=== PATIENT | male | born 1980 | race African-American/Black ===

== ENCOUNTER 2017-01-31 13:22 | Emergency (ER) | payer MEDICAID ==
[~2017-01-31] VITALS: Ht 175.3 cm; Wt 54.4 kg
[2017-01-31 13:46] VITALS: BP 151/72
--- NOTE | 2017-01-31 14:45 | Emergency Room Report ---
History of Present Illness General Chief Complaint: General Complaint Source: Patient Present Illness HPI 37-year-old male presents to the emergency department complaining of white, a painless white growth on his tongue times several weeks. Patient reports some tenderness he reports he has a history of HIV states he is noncompliant with his antiviral medications. Patient has a followup appointment scheduled with infectious disease in a few weeks he states he cannot be seen sooner. 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 Patient denies fevers, chills, headaches, back pain, rashes. significant increase in fatigue. Patient denies cough. Denies CP, Palpitations , LOC, AMS, dizziness, Changes in Vision, Sensation, paresthesias, or a sudden severe headache. Allergies: Coded Allergies: No Known Allergies (Unverified , 01/31/17) Patient History Past Medical History: see triage record, HIV Past Surgical History: none Pertinent Family History: none Social History: Reports: drug use Reviewed Nursing Documentation: PMH: Agreed, PSxH: Agreed Nursing Documentation-PMH Past Medical History: No History, Except For Hx Hypertension: Yes Review of Systems All Other Systems: negative except mentioned in HPI Physical Exam Vital Signs Date Time Temp Pulse Resp B/P (MAP) Pulse Ox O2 Delivery O2 Flow Rate FiO2 01/31/17 13:27 98.1 80 18 151/72 96 Room Air Sp02 EP Interpretation: reviewed, normal General Appearance: no apparent distress, alert, GCS 15, non-toxic, thin, Chronically Ill Head: normocephalic, atraumatic Eyes: bilateral eye normal inspection, bilateral eye PERRL ENT: hearing grossly normal, normal pharynx, no angioedema, normal voice, other - white corrugated patch on the tongue that is not easily removed, hairy appearance. no other oral lesions noted, no exudates, no tonsillar swelling. Neck: full range of motion, no meningismus, supple/symm/no masses Respiratory: lungs clear, normal breath sounds, no wheezing, speaking full sentences Cardiovascular #1: regular rate, rhythm Rectal: deferred Musculoskeletal: back normal, gait/station normal, normal range of motion, non- tender Neurologic: alert, oriented x3, responsive, motor strength/tone normal, sensory intact, speech normal Psychiatric: judgement/insight normal, memory normal, mood/affect normal, depressed affect Skin: normal color, no rash, warm/dry, well hydrated Lymphatic: no adenopathy Medical Decision Making PA Attestation Dr. Yang is my supervising Physician whom patient management has been discussed with. 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 Patient reports some tenderness he reports he has a history of HIV states he is noncompliant with his antiviral medications. Patient has a followup appointment scheduled with infectious disease in a few weeks he states he cannot be seen sooner. 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 Patient denies fevers, chills, headaches, back pain, rashes. significant increase in fatigue. Patient denies cough. Denies CP, Palpitations , LOC, AMS, dizziness, Changes in Vision, Sensation, paresthesias, or a sudden severe headache. Ddx considered but are not limited to: stomatitis, up from his ulcers, oral thrush, HFM, koplik spots, HSV, dental abscess, CONCESSION WORKER, tonsilith, candidiasis just to name a few. Vital signs: are WNL, pt. is afebrile H&PE are most consistent with oral hairy leukoplakia. ORDERS: none required at this time, the diagnosis is clinical ED INTERVENTIONS: None required at this time. Patient is given multiple referrals for HIV/AIDS clinic, [facility] in addition to substance abuse resources. Encouraged patient to followup within 2 days with a infectious disease provider and ENT specialist. Discussed with patient dangers of IV drug use especially in the presence of immunocompromise encourage patient to stop illicit drug use. DISCHARGE: At this time pt. is stable for d/c to home. Will provide printed patient care instructions, and any necessary prescriptions. Care plan and follow up instructions have been discussed with the patient prior to discharge. Last Vital Signs Date Time Temp Pulse Resp B/P (MAP) Pulse Ox O2 Delivery O2 Flow Rate FiO2 01/31/17 13:46 98.1 18 151/72 96 Room Air 01/31/17 13:27 80 Disposition: HOME, SELF-CARE Condition: Stable Referrals: DAWIT LOPEZ (PCP) Patient Instructions: HIV Infection and AIDS, Substance Use Disorder Additional Instructions: Take medications as directed. Follow up with an INFECTIOUS DISEASE PROVIDER in 3-5 days, even if your symptoms have resolved. --Please review list of Infectious disease resources, substance abuse resources , and free clinic resources. Return sooner to ED if new symptoms occur, or current symptoms become worse. - Please note that this Emergency Department Report was dictated using [employer] straightener technology software, occasionally this can lead to erroneous entry secondary to interpretation by the dictation equipment. Mckenzie Mayers Jan 31, 2017 14:45
[2017-01-31 16:32] VITALS: BP 143/67
== END 2017-01-31 15:00 | disposition home or self-care (01) ==
LOC: EMR 14:25
DX: K13.3 Hairy leukoplakia (principal); B20 Human immunodeficiency virus [HIV] disease; Z91.14 Patient's other noncompliance with medication regimen; I10 Essential (primary) hypertension
CPT/HCPCS: 99282

== ENCOUNTER 2017-07-17 13:45 | Emergency (ER) | payer MEDICAID ==
[~2017-07-17] VITALS: Ht 175.3 cm; Wt 59.0 kg
--- NOTE | 2017-07-17 14:45 | Emergency Room Report ---
History of Present Illness General Chief Complaint: Skin Rash/Abscess Source: Patient Present Illness HPI 37-year-old male presents to the emergency department complaining of progressive abscess on the right side of his nose 2 weeks. Patient reports swelling, erythema and tenderness to the touch. Patient denies pain at this time. Patient denies fevers or chills. Patient denies difficulty breathing or shortness of breath. Denies CP, Palpitations, LOC, AMS, dizziness, Changes in Vision, Sensation, paresthesias, or a sudden severe headache. Pt. reports hx of HIV and is not currently taking his medications x 2 months. pt. denies drug use , nasal trauma or epistaxis. Allergies: Coded Allergies: No Known Allergies (Unverified , 01/31/17) Patient History Past Medical History: see triage record Past Surgical History: none Pertinent Family History: none Reviewed Nursing Documentation: PMH: Agreed, PSxH: Agreed Nursing Documentation-PMH Past Medical History: No History, Except For Hx Hypertension: Yes Review of Systems All Other Systems: negative except mentioned in HPI Physical Exam Vital Signs Date Time Temp Pulse Resp B/P (MAP) Pulse Ox O2 Delivery O2 Flow Rate FiO2 07/17/17 14:29 98.2 87 18 148/90 98 Room Air 98.2 Sp02 EP Interpretation: reviewed, normal General Appearance: no apparent distress, alert, GCS 15, Chronically Ill Head: normocephalic, atraumatic ENT: hearing grossly normal, normal pharynx, normal voice, other - Significantly sized abscess of the Right nare, no septal hematoma, some crusting noted in the inner right nare. left nare is uninvolved. Neck: full range of motion, no meningismus, no bony tend Respiratory: chest non-tender, lungs clear, normal breath sounds, speaking full sentences Cardiovascular #1: regular rate, rhythm Musculoskeletal: back normal, gait/station normal, normal range of motion, non- tender Neurologic: alert, oriented x3, responsive, motor strength/tone normal, sensory intact, speech normal, grossly normal Psychiatric: judgement/insight normal Skin: normal color, no rash, warm/dry, well hydrated Lymphatic: no adenopathy Medical Decision Making PA Attestation Dr. Driver is my supervising Physician whom patient management has been discussed with. Diagnostic Impression: Primary Impression: Nasal abscess ER Course 37-year-old male presents to the emergency department complaining of progressive abscess on the right side of his nose 2 weeks. Patient reports swelling, erythema and tenderness to the touch. Patient denies pain at this time. Patient denies fevers or chills. Patient denies difficulty breathing or shortness of breath. Denies CP, Palpitations, LOC, AMS, dizziness, Changes in Vision, Sensation, paresthesias, or a sudden severe headache. Pt. reports hx of HIV and is not currently taking his medications x 2 months. pt. denies drug use , nasal trauma or epistaxis. Ddx considered but are not limited to cellulitis, abscess, cystic acne, necrotizing fasciitis, insect bite. Vital signs: are WNL, pt. is afebrile H&PE are most consistent with Significantly sized abscess of the Right nare. not involving the septum. ORDERS: none required at this time, the diagnosis is clinical ED INTERVENTIONS: - None required at this time. pt. to go directly to ENT specialist for treatment --ENT SPECIALIST Consult : Dr. Chacon agreed to see this patient today upon d/c from ER at his office. This was facilitated via telephone conversation with water and fire technician Danish. DISCHARGE: At this time pt. is stable for d/c to home. Will provide printed patient care instructions, and any necessary prescriptions. Care plan and follow up instructions have been discussed with the patient prior to discharge. Last Vital Signs Date Time Temp Pulse Resp B/P (MAP) Pulse Ox O2 Delivery O2 Flow Rate FiO2 07/17/17 14:29 98.2 87 18 148/90 98 Room Air 98.2 Disposition: HOME, SELF-CARE Condition: Stable Referrals: JAMES CHACON M.D. Patient Instructions: Abscess Additional Instructions: Take medications as directed. Follow up with Dr. Chacon ( ENT/Plastics) TODAY upon discharge from the ED. He has agreed to continue your medical management and any necessary procedures * * --Please review referral address information provided. Return sooner to ED if new symptoms occur, or current symptoms become worse. - Please note that this Emergency Department Report was dictated using [employer] education specialist technology software, occasionally this can lead to erroneous entry secondary to interpretation by the dictation equipment. Mckenzie Mayers Jul 17, 2017 14:45
[2017-07-17 15:22] VITALS: BP 133/87
== END 2017-07-17 15:22 | disposition home or self-care (01) ==
LOC: EMR 15:00
DX: J34.0 Abscess, furuncle and carbuncle of nose (principal); I10 Essential (primary) hypertension
CPT/HCPCS: 99283